=== PATIENT | female | born 1950 | race Caucasian/White ===

== ENCOUNTER 2020-12-31 15:11 | Inpatient (IN) | payer MEDICARE ==
[2020-12-31] MEDS ORDERED: MULTIVITAMIN200 MCG PO (16:37)
[2020-12-31] MEDS ORDERED: B-COMPLEX-VITA1 EACH PO (16:37)
[2020-12-31] MEDS ORDERED: IRON325 M1 PO (16:38)
[2020-12-31] MEDS ORDERED: LAMOTRIGINE200 MG PO (16:38)
[2020-12-31] MEDS ORDERED: DIALYVITE 800800 MCG PO (16:38)
[2020-12-31] MEDS ORDERED: MELOXICAM15 MG PO (16:39)
[2020-12-31] MEDS ORDERED: LORAZEPAM 0.50.5 MG PO (16:39)
[2020-12-31] MEDS ORDERED: SEROQUEL XR 30300 M1 PO (16:40)
[2020-12-31] MEDS ORDERED: RESTASIS MULTI5.5 ML EA. EYE (16:40)
[2020-12-31] MEDS ORDERED: FISH OIL 1,001000 M3 PO (16:40)
[2020-12-31] MEDS ORDERED: RESTORIL30 MG PO (16:41)
[2020-12-31] MEDS ORDERED: VITAMIN B-125000 MCG SUBLING (16:42)
[2020-12-31] MEDS ORDERED: VITAMIN D310 MC3 PO (16:42)
[2020-12-31] MEDS ORDERED: VALACYCLOVIR500 MG PO (16:42)
[2020-12-31 19:40] VITALS: BP 117/96
[2020-12-31] MEDS ORDERED: QUETIAPINE FUM300 MG PO (23:04)
[2021-01-01 02:00] VITALS: BP 117/96
--- NOTE | 2021-01-01 04:08 | NUR ---
ASSUMED CARE OF THE PATIENT JUST AFTER SHE ARRIVED ON THE FLOOR ON 12/31/20 @ 19:15, AT SHIFT CHANGE. 96 HOUR HOLD ENACTED AND FAXED TO THE APROPRIATE OFFICE. HAS BEEN IN [facility] FOR INTENTIONAL OVERDOSE ON HER PRESCRIBED MEDICATION, TEMAZEPAM, TAKING 20-30 TABS OF 30MG SLEEPING PILL AFTER A DISAGREEMENT WITH HER SON. VS 117/96 85 20 36.8 99%, BED WEIGHT OF 177.9. REPORTS A LIFETIME OF BIPOLAR MENTAL HEALTH ISSUES, BUT ONLY GOT A DIAGNOSIS WHEN SHE WAS IN HER 50'S. DIET REGULAR, BUT DISLIKES FISH AND SALMON, DISLIKES ALL VEGGIES EXCEPT FOR CORN. LIKES STRAWBERRY, PINEAPPLE, BBQ BEEF, CHEESEBURGERS, NACHOS WITH MEAT AND CHEESE. REPORTS NO DIETARY RESTRICTIONS. REPORTS IS ABLE TO DO HER OWN ADLS WITHOUT ASSISTANCE. WHEN LEFT BY HERSELF IN HER ROOM REPORTS THAT SHE TURNED OFF THE LIGHTS AND WALKED TO HER BED IN THE DARK AND FELL. FALL STATUS IS NOW A HIGH FALL RISK. SKIN IS INTACT AND NO WOUNDS NOTED. WEIGHT 177.9. ORDER FOR CT SCAN OF THE HEAD. WILL CONTINUE TO MONITOR PER UNIT PROTOCOL FOR SAFETY AND COMFORT. ORDERS OBTAINED FROM DR. STEEN FOR MEDICATIONS AND [facility] ORDERS AND ENTERED.
--- NOTE | 2021-01-01 09:24 | NUR ---
ASSUMED CARE AT 0700 THIS MORNING. PT. CAME INTO THE DINING ROOM. SHE TOLD THIS RN HER LIFE STORY. SHE TOOK HER MORNING MEDICATIONS AFTER AREVIEWING THEM WITH THIS RN. SHE IS ORDERED FOR A CT SCAN OF THE HEAD THIS MORNING. SHE HAS REFUSED THE CT SCAN UNTIL SHE SEES THE DR. IS TALKING TO THE PT. AT THIS TIME. SHE ATE BREAKFAST AND ATTENDED MORNING GROUP. WILL CONTINUE TO MONITOR.
[2021-01-01 09:39] VITALS: BP 125/67
--- NOTE | 2021-01-01 11:12 | NUR ---
Nutrition: pt admitted with mood disorder and seen per new admission to [facility]. Decreased appetite per admission assessment however pt denies and states "Im just picky". food preferences entered in diet order however RD assisted in educating pt on menu/alternative choices and ordering today. Stable weights reported with UBW stated as 173#. 190# taken per bedscale. pt on multiple vitamins: folic acid, Vitamin D, B12, ferrous sulfate and DHA. Ate 100% of breakfast this am. Encouraged pt to request assistance making menu change daily. Low nutrition risk.
[2021-01-01 16:35] VITALS: BP 125/67
[2021-01-01 19:30] VITALS: BP 125/75
--- NOTE | 2021-01-02 01:54 | NUR ---
ASSUMED PT CARE AT 1900.PT WAS OBSERVED SITTING IN THE DAY ROOM SOLVING HER PUZZZLE AT START OF SHIFT.PT TOOK ALL HER HS MEDS WHOLE WITH NO PROBLEM.PT TOLD HER STORY ON HOW SHE ENDED UP ON THIS UNIT,WAS SO EMOTIONAL& REMORSEFUL FOR HER ACTIONS.PT STATED THAT SHE WILL NEVER DO THAT AGAIN.EMOTIONAL SUPPORT GIVEN.THIS NURSE SPENT SOME TIME WITH THE PATIENT TALKING ABOUT HER LIFE ACHIEVEMENTS AND HER TRAVELLINGS BEFORE SHE RETIRED FOR THE NIGHT.PT LOOKING FORWARD TO BE DC'D LATER IN THE DAY.
--- NOTE | 2021-01-02 09:28 | NUR ---
COPERATIVE AND PLEASANT THIS AM-SITTING INDAYROOM ON INITIAL APPROACH STATES FEELS "A LITTLE SAD" BECAUSE TOLD HER SHE COULD NOT BE DC'D TODAY AND WOULD BE STAYING UNTIL TUESDAY. COMPLIENT WITH AM MEDS-ALERT AND ORIENTED X3-DENIES SI/SH/HI. FULL RANGE AFFECT-SOCIAL WITH STAFF AND PEERS. GAIT STEADY WITHOUT ASSISTIVE DEVICES.
[2021-01-02 10:10] VITALS: BP 126/81
--- NOTE | 2021-01-02 12:21 | NUR ---
SW spoke with pt this morning. Pt had a difficult time staying on task, and SW had to redirect her back to the topics at hand. SW reviewed the SLUMS that Dr. Vogel performed with pt in which she got a score of 21/30. SW explained that SW needs to make appointments with her psych doctor and her therapist per Dr. Vogel in preparation for Tuesday's d/c. SW also explained that Dr. Vogel thiks it is best that she stay with her brother Scar. Pt was reluctant to stay, but said okay she understands. SW received a call from pt's sister Georgia Cruz [phone] asking if pt could have her i-Pad. SW explained that she could not. SW spoke to pt about this issue this morning and can arrange for her to use [facility] ipads to speak to family this weekend. Georgia said she is aware of pt's dementia dx, and said she does not drink alcohol or do any drugs. She said that she believes it stems from her bipolar disorder. SW team will continue to follow pt during her stay on this unit.
--- NOTE | 2021-01-02 15:06 | NUR ---
AFTER MEETING WITH AND GAYLE BECAME UPSET THAT SHE WAS NOT ALLOWED TO HAVE HER IPAD THIS WEEKENDRETREATED TO ROOM AND SLAMMED DOOR-WHEN INFORMED THAT HER LUNCH WAS HERE THAT HAD BEEN SPECIAL ORDERED AND PREPARED PER HER ISTRUCTIONS CAME TO DINING ROOM GRABBED TRAY AND THREW IT ON FLOOR OF DAYROOM-WHEN SPEAKING WITH SAFF ABOUT HTIS INCIDENT STATES "ALL THESE OTHER PEOPLE THROW THEIR FOOD ON THE GROUND WHY CAN'T I" ALSO STATES THAT STAFF HERE IS ALWAYS "TUGGING AND PULLING ON PEOPLE IT NOT RIGHT" STATES "WHEN I GET OUT OF HERE IT IS GOING TO BE ALL OVER SOCIAL MEDIA-YOU WAIT AND SEE"HAS REFUSED TO COME OUT OF ROOM SINCE ABOVE NOTED INCIDENT-STATES SHE IS UPSET WITH THIS NURSE D/T FACT THAT I WOULD NOT STOP ADMITTING NEW PT TO UNIT WHO HAD ACTIVE SI TO GET HER OWN SHAMPOO AND CONDITIONER OUT OF BELONGINGS SO SHE COULD SHOWER.
[2021-01-02 19:31] VITALS: BP 135/80
[2021-01-02 22:20] VITALS: BP 135/80
--- NOTE | 2021-01-02 23:32 | NUR ---
2330 RESUMMED CARE FROM DAY SHIFT THIS EVENING, PATIENT SITTING IN DAY ROOM WATCHING TV. PATIENT ALERT ORIENTED TIMES 4 PATIENT DENIES SI/HI/AH/VH AT PRESENT. PATIENTS ABDOMEN SOFT BOWEL SOUNDS PRESENT, PATIENTS LUNGS CLEAR. PATIENT LIKES TO TALK WITH STAFF AND STATES SHE IS AJUSTING MUCH BETTER WITH HER HEALTH PROBLEMS. WILL CONTINUE TO MONITOR PATIENT FOR SAFETY AND BEHAVIORS.
[2021-01-03 08:25] VITALS: BP 122/83
--- NOTE | 2021-01-03 15:37 | NUR ---
0700 ASSUMED CARE OF PATIENT, PATIENT IN DAYROOM AT THAT TIME. MEDICATION TAKEN WHOLE WITHOUT DIFFICULTY. AMB WITH STEADY GAIT, DENIES PAIN, SLIGHT SWELLING TO BILATERAL LOWER EXT. LS CLEAR. PATIENT TEARY EYED AFTER USING PHONE. PATIENT UPSET SHE BELIEVED HER DC WAS TODAY. PATIENT OUT TO DAYROOM TO PARTICIPATE IN GROUP.
[2021-01-03 19:59] VITALS: BP 117/76
--- NOTE | 2021-01-04 05:51 | NUR ---
Assumed care on 01/03/21 @ 1900, Socialized with peers and watched TV. At 2200 when the TV was turned off, walked laps around the cooper for about 30 minutes at a brisk pace. After she had been in bed for a while, got up and said, that the Trazadone is not working. Suggestion made to not do aerobic exercises @ , and she agreed that that could be related. Retired to bed and rested. Will continue to monitor for safety and comfort as per unit protocol.
[2021-01-04 09:41] VITALS: BP 116/71
--- NOTE | 2021-01-04 09:56 | NUR ---
GAYLE attempted to assist pt with contacting her family with the ipad. Pt informed that she did not have their contact information because her brother had her cell phone with their number in it. She thanked GAYLE but declined any further assistance stating she would contact her granddaughter when she was discharged. SW team will remain available.
--- NOTE | 2021-01-04 18:22 | NUR ---
0700 ASSUMED CARE OF PATIENT AT THIS TIME, PATIENT IN BED AT THAT TIME. PATIENT AMB WITH STEADY GAIT. VS 116/71, 84, 18, 97.5, 97%. MEDICATION TAKEN WHOLE WITHOUT DIFFICULTY. DENIES SI/HI, NO C/O PAIN, DENIES ANXIETY AT THIS TIME. PATIENT HAPPY DC IS IN AM. PATIENT CALM AND COOPERATIVE, NOTED ASSISTING OTHER AT TIMES. PATIENT HAD VISITOR AT 4PM. PATIENT RESTING AT THIS TIME IN CHAIR.
[2021-01-04 19:15] VITALS: BP 111/59
--- NOTE | 2021-01-05 04:24 | NUR ---
ASSESSMENT DOCUMENTED.PT BEEN RESTING IN NO ACUTE DISTRESS.A/OX4.VSS.PT BEEN SLEEPING MOST OF THE NOC.PT CO-OPERATIVE WITH CARE,TOOK MEDS W/O DIFFICULTIES.PT DENIES PAIN OR ANY OTHER DISTRESS AT THIS TIME.WILL CONT TO MONITOR .
[2021-01-05] MEDS ORDERED: PEPCID20 MG PO (09:01)
[2021-01-05] MEDS ORDERED: PT HOME MEDICATION MISCELL (09:02)
[2021-01-05] MEDS ORDERED: VITAMIN D310 MC1 PO (09:02)
[2021-01-05 10:21] VITALS: BP 120/73
[2021-01-05 10:28] VITALS: BP 120/73
[2021-01-05 10:43] VITALS: BP 120/73
[2021-01-05] MEDS ORDERED: DESYREL150 MG PO (10:48)
--- NOTE | 2021-01-05 11:35 | NUR ---
Assumed pt care at 0700. pt was alert and oriented x4. Took meds whole, no difficulty noted. Ambulates with a steady gait. Denies si/hi. Denies pain. No sign of acute distress noted upon assessments. Assessments completed, vss. calm and co-operative with care. D/C AT 1110, with D/C instructions, prescription script, home meds and belonging. Pt was D/C to her brother.
--- NOTE | 2021-01-05 13:42 | NUR ---
GAYLE D/C NOTE GAYLE scheduled with [facility] two appts for pt: one with her psych doctor Dr. Hernandez Johnson on 01/06/2021 @1500, and one with her therapist on January 20 at 0830. GAYLE created a handout with this information and gave it to pt and her brother. GAYLE faxed to [facility] pt's discharge docs including pt's SW handout with the appts. GAYLE will file docs in pt's hospital file. No other needs for GAYLE team to address at this time.
--- NOTE | 2021-01-06 21:04 | D ---
[facility] [place] [address] DISCHARGE SUMMARY Name: VARSHA HELLER Room #: 526B-B [facility] IN M.R.#: [id number] Admission: 12/31/20 Attend Phys: Cyndi Rutherofrd MD Discharge: 01/05/21 Date of : 54 Report #: [id number] THIS REPORT FOR: cc: Valerie Holder MD, Veronica A. MD Kerstein,Bro Michael DO ~ DOC #: [id number] BRO Vogel DO DATE OF SERVICE: 01/05/2021 INPATIENT PSYCHIATRIC DISCHARGE SUMMARY ATTENDING PSYCHIATRIST: Bro Vogel DO VICE PRESIDENT PHARMACY: Hector Dey M.D. OUTPATIENT PSYCHIATRIST: Hernandez Johnson MD at [facility]. DISCHARGE DIAGNOSES: Major neurocognitive disorder due to Alzheimer's disease, early onset with behavioral disturbance. Adjustment disorder with disturbance of mood and conduct, resolved. ADDITIONAL DIAGNOSES: As follows: Insomnia, improved, recent fall with closed head injury, negative head CT, gastroesophageal reflux disease, history of bariatric surgery. Continue supplements. Also, the patient has a history of bipolar disorder and she is on chronic therapy for that from Dr. Johnson. DISCHARGE MEDICATIONS: As follows: Multivitamin with minerals 200 mcg oral daily, folic acid, vitamin B complex, and C 800 mcg oral twice daily, both of those supplementation, ferrous sulfate 325 mg oral daily for supplementation, lamotrigine 200 mg oral twice daily for mood stabilization, meloxicam 15 mg oral daily for arthritis, omega 3 fish oil 1000 mg oral daily for supplementation, cyclosporine drops 5.5 mL each eye twice daily, cyanocobalamin 5000 mcg oral twice daily at home dose and Seroquel 300 mg oral at bedtime for sleep and mood. I also prescribed the patient trazodone 50 mg p.o. at bedtime to take for the first 14 days, she is out of the hospital to help with sleep. Also, famotidine 20 mg oral daily for GERD. Vitamin D3 2000 International Units oral daily. The patient has a regular diet. No alcohol, no illicit drugs, no smoking. The patient was given suicidal crisis hotline information she was picked up by her brother, Scar. Tricia lisarahul until cleared to by danis at [facility] or Drivers license authority in [place] LABORATORY DATA: She was transferred from [facility] so basically it was just the negative Pride test for COVID-19. The patient's reasons for admission back on the 01/05, this is a 70-year-old [facility] [address] [place] [address] DISCHARGE SUMMARY Name: VARSHA HELLER Room #: 526B-B [facility] IN M.R.#: [id number] Admission: 12/31/20 Attend Phys: Cyndi Rutherford MD Discharge: 01/05/21 Date of : 54 Report #: [id number] female who had an intentional overdose allegedly 20-30, 30 mg temazepam tablets. The patient was hospitalized several days at [facility]. She did not require mechanical ventilation or other complications such as that. Apparently, there had been conflict over her son coming to her nephew's wedding. HOSPITAL COURSE: The patient was admitted to the geriatric psychiatry unit. Initially, the patient was resistive to hospitalizations. We had an incident last Tuesday where she threw the contents of her meal tray in the dining area. The patient was counseled on the inappropriateness of this behavior. She improved over the weekend. [facility] Mental Status Examination was done during the admission, she scored 21/30. Deficits were all in memory, executive function and attention. We did get records from [facility] including evaluation by Dr. Ellis, MRI report and some "neuropsych testing" she had done earlier in 2019. There was a clear diagnosis of mild neurocognitive disorder with recommendation for followup with the Amyloid PET scan. I believe given the patient's history of cognitive decline and other factors this is most likely an early Alzheimer dementia. We had family meeting the day of discharge with her brother. The patient was advised not to be driving unless she passed a driving evaluation test, I recommend the [facility] for that at the [place] [employer]. The patient voiced her understanding of this as well as the brother. I advised within the next 6-12 months it is possible she could have a decline that would require long-term care placement. The patient did not appoint healthcare DPOA this admission; however, this is desirable. PHYSICAL EXAMINATION: VITAL SIGNS: Vital today at discharge are as follows: Temperature 36.8, pulse 92, respirations 18, BP 120/73. MUSCULOSKELETAL: Normal gait and station. MENTAL STATUS EXAMINATION: This is a well-developed, fairly well-nourished female appearing stated age. Attention intact. Concentration fair. Speech is normal in rate, volume, and tone. Thought process: Linear and goal oriented. Thought content focused on discharge. No psychomotor agitation, no psychomotor retardation. Mood and affect were congruent, euthymic. Denies SI or HI. She denies auditory, visual, or tactile hallucinations. Memory not formally tested today. Insight is fair to limited. Judgment fair. Fund of knowledge average. Prognosis for this patient is guarded given the age of 70, having an early Alzheimer's diagnosis. DO DM Chirinos/CHAN/CASSIUS [facility] [address] [place] [address] DISCHARGE SUMMARY Name: VARSHA HELLER Room #: 526B-B [facility] IN M.R.#: [id number] Admission: 12/31/20 Attend Phys: Cyndi Rutherford MD Discharge: 01/05/21 Date of : 54 Report #: [id number] <ELECTRONICALLY SIGNED> By: Bro Vogel DO 01/06/21 2104 [id number] Bro Vogel DO /nt
== END 2021-01-05 11:10 | disposition home or self-care (01) | DRG 57 ==
LOC: SBH
PROVIDERS: ADMIT Psychiatry & Neurology Psychiatry; ATTEND Psychiatry & Neurology Psychiatry
DX: G30.9 Alzheimer's disease, unspecified (principal); F02.81 Dementia in other diseases classified elsewhere, unspecified severity, with behavioral disturbance; T42.4X2A Poisoning by benzodiazepines, intentional self-harm, initial encounter; R45.851 Suicidal ideations; F41.9 Anxiety disorder, unspecified; K21.9 Gastro-esophageal reflux disease without esophagitis; G47.00 Insomnia, unspecified; F31.9 Bipolar disorder, unspecified; Z20.822 Contact with and (suspected) exposure to COVID-19; Z98.84 Bariatric surgery status; Y92.89 Other specified places as the place of occurrence of the external cause
CPT/HCPCS: 10880

== ENCOUNTER 2020-12-31 16:28 | Emergency (ER) | payer MEDICARE ==
[~2020-12-31] VITALS: Ht 167.6 cm; Wt 86.2 kg
[2020-12-31] MEDS ORDERED: MULTIVITAMIN200 MCG PO (16:37)
[2020-12-31] MEDS ORDERED: B-COMPLEX-VITA1 EACH PO (16:37)
[2020-12-31] MEDS ORDERED: IRON325 M1 PO (16:38)
[2020-12-31] MEDS ORDERED: DIALYVITE 800800 MCG PO (16:38)
[2020-12-31] MEDS ORDERED: LAMOTRIGINE200 MG PO (16:38)
[2020-12-31] MEDS ORDERED: LORAZEPAM 0.50.5 MG PO (16:39)
[2020-12-31] MEDS ORDERED: MELOXICAM15 MG PO (16:39)
[2020-12-31] MEDS ORDERED: RESTASIS MULTI5.5 ML EA. EYE (16:40)
[2020-12-31] MEDS ORDERED: SEROQUEL XR 30300 M1 PO (16:40)
[2020-12-31] MEDS ORDERED: FISH OIL 1,001000 M3 PO (16:40)
[2020-12-31] MEDS ORDERED: RESTORIL30 MG PO (16:41)
[2020-12-31] MEDS ORDERED: VITAMIN B-125000 MCG SUBLING (16:42)
[2020-12-31] MEDS ORDERED: VALACYCLOVIR500 MG PO (16:42)
[2020-12-31] MEDS ORDERED: VITAMIN D310 MC3 PO (16:42)
[2020-12-31 18:24] VITALS: BP 122/74
[2020-12-31] MEDS ORDERED: QUETIAPINE FUM300 MG PO (23:04)
--- NOTE | 2021-01-02 07:04 | EKG ---
[address] [address] ELECTROCARDIOGRAM REPORT Name: VARSHA HELLER [id number] Admission: 12/31/20 Attend Phys: Discharge: 12/31/20 Date of : 54 Report #: [id number] [facility] ED Test Date: 2020-12-31 Test Time: 16:56:58 Pat Name: VARSHA HELLER Department: Room: Gender: F Windows Desktop Support: unknown : 1950 Requested By: Adolfo Chatman Order Number: [id number] MD: Mingo Devine Measurements Intervals [place] Rate: 72 P: 46 DC: 143 QRS: 21 QRSD: 146 T: 1 QT: 424 QTc: 465 Interpretive Statements Sinus rhythm Right bundle branch block No previous ECG available for comparison Electronically Signed On 01-02-2021 7:03:59 CDT by Mingo Devine [email or web address] <ELECTRONICALLY SIGNED> By: Mingo Devine MD, [facility] 01/02/21 0703 [id number] Mingo Devine MD, FACC /EPI
== END 2020-12-31 18:25 ==
LOC: ER 16:28
DX: T42.6X2A Poisoning by other antiepileptic and sedative-hypnotic drugs, intentional self-harm, initial encounter (principal); Z20.822 Contact with and (suspected) exposure to COVID-19; F32.9 Major depressive disorder, single episode, unspecified; Z79.899 Other long term (current) drug therapy; Y92.89 Other specified places as the place of occurrence of the external cause